=== PATIENT | male | born 1935 | race African-American/Black ===

== ENCOUNTER 2021-11-14 19:25 | Inpatient (IN) | payer BC ==
[~2021-11-14] VITALS: Ht 175.3 cm; Wt 72.6 kg
[2021-11-14 23:45] LABS: HEMATOCRIT. 30.3 % (42.0-52.0); HEMOGLOBIN. 9.8 g/dL (14.0-18.0); MEAN CORPUSCULAR HEMOGLOBIN 30.6 pg (28.0-32.0); MEAN CORPUSCULAR VOLUME 94.8 fL (80.0-94.0); MEAN PLATELET VOLUME 7.4 fl (7.4-10.4); PLATELET 296 x1000/uL (130-400); RED BLOOD CELL COUNT 3.19 mill/uL (4.7-6.1); RED CELL DISTRIBUTION WIDTH 14.5 % (11.6-14.6)
[2021-11-14 23:55] LABS: CHLORIDE 107 mEq/L (98-107)
[2021-11-15 02:33] LABS: PLATELET ESTIMATE NORMAL
[2021-11-15] MEDS ORDERED: FLOV11 IH (11:47)
[2021-11-15] MEDS ORDERED: LOSA100T32 PO (11:47)
[2021-11-15 12:00] VITALS: BP 141/86
[2021-11-15 12:46] LABS: HEMATOCRIT. 28.9 % (42.0-52.0); HEMOGLOBIN. 9.3 g/dL (14.0-18.0); MEAN CORPUSCULAR HEMOGLOBIN 30.9 pg (28.0-32.0); MEAN CORPUSCULAR VOLUME 96.4 fL (80.0-94.0); MEAN PLATELET VOLUME 7.9 fl (7.4-10.4); PLATELET 275 x1000/uL (130-400); RED CELL DISTRIBUTION WIDTH 14.4 % (11.6-14.6)
[2021-11-15 13:06] VITALS: BP 141/86
[2021-11-15 13:07] LABS: CHLORIDE 111 mEq/L (98-107); HDL CHOLESTEROL 45 mg/dL (40-59); LDL CHOLESTEROL 61 mg/dL (5-100); T4 FREE 1.18 ng/dL (0.76-1.46)
[2021-11-15] MEDS ORDERED: LOSARTAN POTASSIUM 50 MG TABLET PO SCH (14:00)
[2021-11-15] MEDS: FUROSEMIDE 40MG/4ML VIAL IVP SCH (14:13)
[2021-11-15] MEDS: ENOXAPARIN 30MG/0.3ML SYR SUBCUT SCH (14:14)
[2021-11-15 16:00] VITALS: BP 159/83
[2021-11-15 16:50] LABS: CREATINE KINASE MB FRACTION 1.4 ng/mL (0.5-3.6)
[2021-11-15 20:00] VITALS: BP 146/60
[2021-11-15 23:07] LABS: PLATELET ESTIMATE NORMAL
[2021-11-16] VITALS: BP 144/80
[2021-11-16] MEDS: IPRATROPIUM/ALBUTEROL 0.5-3(2.5)MG/3ML NEB HHN SCH ×4 (00:57→21:21)
[2021-11-16 01:09] LABS: CREATINE KINASE MB FRACTION 1.2 ng/mL (0.5-3.6)
[2021-11-16] MEDS ORDERED: DIGOXIN 500MCG/2ML AMP IV NR (02:15)
[2021-11-16] MEDS ORDERED: DILTIAZEM HCL 30MG TABLET PO SCH (03:41)
[2021-11-16 04:00] VITALS: BP 119/77
[2021-11-16 07:52] VITALS: BP 101/54
[2021-11-16] MEDS: ENOXAPARIN 30MG/0.3ML SYR SUBCUT SCH (08:04)
[2021-11-16] MEDS: FUROSEMIDE 40MG/4ML VIAL IVP SCH (08:04)
[2021-11-16] MEDS ORDERED: AMIODARONE HCL 900 MG in DEXT 5% WATER 482 ML IV SCH (09:30)
[2021-11-16 11:53] VITALS: BP 101/58
[2021-11-16 12:03] LABS: HEMATOCRIT. 26.4 % (42.0-52.0); HEMOGLOBIN. 8.7 g/dL (14.0-18.0); MEAN CORPUSCULAR HEMOGLOBIN 31.5 pg (28.0-32.0); MEAN PLATELET VOLUME 8.2 fl (7.4-10.4); PLATELET 256 x1000/uL (130-400); RED BLOOD CELL COUNT 2.75 mill/uL (4.7-6.1); RED CELL DISTRIBUTION WIDTH 14.9 % (11.6-14.6)
[2021-11-16 12:07] LABS: CHLORIDE 110 mEq/L (98-107)
[2021-11-16] MEDS ORDERED: ENOXAPARIN 40MG/0.4ML SYR SUBCUT SCH (12:45)
[2021-11-16 14:39] LABS: PLATELET ESTIMATE NORMAL
[2021-11-16 15:33] VITALS: BP 124/69
[2021-11-16] MEDS ORDERED: POTASSIUM CHLORIDE 20MEQ TABLET SR PO NR (16:30)
[2021-11-16 20:00] VITALS: BP 100/50
[2021-11-16] MEDS: ENOXAPARIN 80MG/0.8ML SYR SUBCUT SCH (21:26)
[2021-11-17] VITALS: BP 113/68
[2021-11-17] MEDS: IPRATROPIUM/ALBUTEROL 0.5-3(2.5)MG/3ML NEB HHN SCH ×2 (02:33→07:29)
[2021-11-17 04:00] VITALS: BP 113/66
[2021-11-17 07:35] LABS: HEMATOCRIT. 26.1 % (42.0-52.0); HEMOGLOBIN. 8.8 g/dL (14.0-18.0); MEAN CORPUSCULAR HEMOGLOBIN 31.7 pg (28.0-32.0); MEAN CORPUSCULAR VOLUME 93.9 fL (80.0-94.0); MEAN PLATELET VOLUME 8.1 fl (7.4-10.4); PLATELET 267 x1000/uL (130-400); RED BLOOD CELL COUNT 2.78 mill/uL (4.7-6.1); RED CELL DISTRIBUTION WIDTH 14.4 % (11.6-14.6)
[2021-11-17 08:00] VITALS: BP 120/65
[2021-11-17 08:08] LABS: CHLORIDE 107 mEq/L (98-107)
[2021-11-17 08:38] LABS: TOTAL IRON BINDING CAPACITY 216 ug/dL (250-450)
[2021-11-17] MEDS: FUROSEMIDE 40MG/4ML VIAL IVP SCH (08:40)
[2021-11-17] MEDS: ENOXAPARIN 80MG/0.8ML SYR SUBCUT SCH (08:40)
[2021-11-17 12:00] VITALS: BP 116/63
[2021-11-17 16:00] VITALS: BP 128/58
[2021-11-17 17:28] LABS: PLATELET ESTIMATE NORMAL
[2021-11-17 20:00] VITALS: BP 133/68
[2021-11-17] MEDS: AMIODARONE HCL 200 MG TABLET PO SCH (20:29)
[2021-11-18] MEDS: IPRATROPIUM/ALBUTEROL 0.5-3(2.5)MG/3ML NEB HHN SCH ×3 (02:49→15:00)
[2021-11-18 08:00] VITALS: BP 132/68
[2021-11-18] MEDS: AMIODARONE HCL 200 MG TABLET PO SCH (08:16)
[2021-11-18] MEDS: FUROSEMIDE 40MG/4ML VIAL IVP SCH (08:19)
[2021-11-18] MEDS ORDERED: ENOXAPARIN 30MG/0.3ML SYR SUBCUT SCH (09:00)
[2021-11-18] MEDS ORDERED: ASPIRIN 81MG TABLET PO SCH (09:00)
[2021-11-18] MEDS ORDERED: APIXABAN 5 MG TABLET PO SCH (09:00)
[2021-11-18 09:07] LABS: ANTI-NUCLEAR ANTIBODIES DIRECT Negative (Negative)
[2021-11-18 11:23] LABS: VITAMIN B12 SERUM 315 pg/mL (211-911)
[2021-11-18 12:00] VITALS: BP 133/64
[2021-11-18] MEDS ORDERED: AMI2 PO (12:05)
[2021-11-18] MEDS ORDERED: APIX5TAB PO (12:05)
[2021-11-18] MEDS ORDERED: FURO-151 MT (12:05)
[2021-11-18 13:55] VITALS: BP 133/64
[2021-11-28 04:10] LABS: COMPLEMENT COMPONENT 5 18 mg/dL (7-20)
== END 2021-11-18 15:06 | disposition home or self-care (01) | DRG 291 ==
LOC: ER 19:25 → EDBEDREQTM 11-15 03:07 → EDBEDREQSVC 11-15 03:07 → EDBEDREQ 11-15 03:07 → 8WST 11-15 09:34
PROVIDERS: ADMIT Family Medicine; ATTEND Family Medicine
DX: I11.0 Hypertensive heart disease with heart failure (principal); I50.33 Acute on chronic diastolic (congestive) heart failure; I31.3 Pericardial effusion (noninflammatory); C34.91 Malignant neoplasm of unspecified part of right bronchus or lung; E44.0 Moderate protein-calorie malnutrition; R74.01 Elevation of levels of liver transaminase levels; I48.0 Paroxysmal atrial fibrillation; R91.8 Other nonspecific abnormal finding of lung field; E78.5 Hyperlipidemia, unspecified; J45.909 Unspecified asthma, uncomplicated; E11.9 Type 2 diabetes mellitus without complications; I25.10 Atherosclerotic heart disease of native coronary artery without angina pectoris; K75.9 Inflammatory liver disease, unspecified; K86.9 Disease of pancreas, unspecified; R91.1 Solitary pulmonary nodule; M79.89 Other specified soft tissue disorders; R79.89 Other specified abnormal findings of blood chemistry; Z20.822 Contact with and (suspected) exposure to COVID-19; Z79.899 Other long term (current) drug therapy
CPT/HCPCS: 36415; 71045; 71250; 74176; 80048; 80053; 80061; 82378; 82550; 82553; 82607; 83036; 83540; 83550; 83880; 84153; 84439; 84443; 84484; 85025; 85379; 85651; 86038; 86160; 86431; 87426; 93005; 93306; 93308; 93970; 94640; 99285; J0282; J1160; J1650; J1940; J7060; G0103